=== PATIENT | female | born 1945 | race Caucasian/White ===

== ENCOUNTER → 2017-04-23 | Outpatient (CLI) | payer MEDICARE, OTHER | LOC: MC.RAD 08:14 | DX: Z12.31 Encounter for screening mammogram for malignant neoplasm of breast (principal) ==

== ENCOUNTER 2017-05-30 12:28 | Emergency (ER) | payer MEDICARE, OTHER ==
[~2017-05-30] VITALS: Ht 154.9 cm; Wt 97.7 kg
[2017-05-30 12:30] VITALS: TEMP 97.1
[2017-05-30 12:54] LABS: BASO # 0.1 (0.0-0.2); BASO % 0.6 % (0.0-2.0); EOS % 0.3 % (0-4.0); GRAN % 74.6 % (42.2-75.2); HEMATOCRIT 45.6 % (37.0-47.0); HEMOGLOBIN 15.3 g/dl (12.5-16.0); LYMPH # 1.5 (1.2-3.4); LYMPH % 19.1 % (20.0-51.0); MEAN CELL VOLUME 89 fl (80.0-100.0); MEAN CORPUSCULAR HEMOGLOBIN 30 pg (27.0-31.0); MEAN CORPUSCULAR HGB CONC 34 g/dl (33.0-37.0); MONO # 0.4 (0.1-0.6); PLATELET COUNT 283 K/mm3 (130-400); RED BLOOD COUNT 5.12 M/mm3 (4.10-5.30); REDCELL DISTRIBUTION WIDTH-CV 13.7 % (11.5-14.5)
[2017-05-30 13:03] LABS: INR 1.1 (0.8-3.0); PROTHROMBIN TIME 13.2 SECONDS (9.7-12.8)
[2017-05-30 13:05] LABS: ALANINE AMINOTRANSFERASE 29 U/L (9-52); ALBUMIN 4.3 gm/dL (3.5-5.0); ALKALINE PHOSPHATASE 68 U/L (50-136); ANION GAP 18 mmol/L (7-16); AST,SGOT 30 U/L (15-37); BILIRUBIN,TOTAL 0.9 mg/dL (0.0-1.0); BLOOD UREA NITROGEN 14 mg/dL (7-17); CALCIUM 9.6 mg/dL (8.4-10.2); CARBON DIOXIDE 22 mmol/L (22-30); CHLORIDE 97 mmol/L (98-107); CREATININE, serum 1.06 mg/dL (0.52-1.25); GLUCOSE 119 mg/dL (74-106); SODIUM 137 mmol/L (137-145); TOTAL PROTEIN 7.1 gm/dL (6.4-8.2)
[2017-05-30 13:06] LABS: PARTIAL THROMBOPLASTIN TIME 23.7 SECONDS (26.0-37.0)
[2017-05-30 13:15] LABS: POTASSIUM 2.7 mmol/L (3.4-5.0)
[2017-05-30 13:19] LABS: TROPONIN-I < 0.012 ng/mL (0.000-0.034)
[2017-05-30] MEDS ORDERED: HCTZ 25MG TAB25 MG PO (13:25)
[2017-05-30] MEDS ORDERED: CYMBALTA 30MG30 MG PO (13:25)
[2017-05-30] MEDS ORDERED: ELIQUIS 5MG PO (14:31)
[2017-05-30 14:40] VITALS: BP 126/70; PULSE 94
== END 2017-05-30 14:41 | disposition home or self-care (01) ==
LOC: COL.ER 12:28
PROVIDERS: Family Medicine
DX: I48.91 Unspecified atrial fibrillation (principal); R55 Syncope and collapse; I10 Essential (primary) hypertension
CPT/HCPCS: J7030

== ENCOUNTER → 2017-06-06 | Outpatient (CLI) | payer MEDICARE, OTHER ==
[~2017-06-06] MED LIST: CYMBALTA 30MG30 MG PO; ELIQUIS 5MG PO; HCTZ 25MG TAB25 MG PO
== END ==
LOC: COL.VAS 09:22
DX: I08.8 Other rheumatic multiple valve diseases (principal); I48.0 Paroxysmal atrial fibrillation

== ENCOUNTER 2017-07-25 09:13 | Day surgery (SDC) | payer MEDICARE, OTHER ==
[~2017-07-25] VITALS: Ht 154.9 cm; Wt 88.0 kg
[2017-07-25 09:00] VITALS: BP 126/80; PULSE 92; TEMP 98
[2017-07-25 10:05] LABS: INR 2.3 (0.8-3.0); PROTHROMBIN TIME 26.8 SECONDS (9.7-12.8)
[2017-07-25 10:11] LABS: POTASSIUM 3.1 mmol/L (3.4-5.0)
[2017-07-25] MEDS ORDERED: COUMADIN 6MG6 MG/TAB PO (10:12)
[2017-07-25] MEDS ORDERED: ZESTRIL 20MG TA20 MG PO (10:26)
[2017-07-25 10:44] LABS: THYROID STIMULATING HORMONE 0.8 uIU/mL (0.465-4.680)
[2017-07-25 11:32] VITALS: BP 127/82; PULSE 111; TEMP 98
[2017-07-25] MEDS ORDERED: MULTAQ400 MG PO (11:36)
[2017-07-25 11:47] VITALS: BP 126/67; PULSE 76; TEMP 98
[2017-07-25 12:17] VITALS: BP 128/75; PULSE 69; TEMP 98
[2017-07-25 12:47] VITALS: BP 127/71; PULSE 73; TEMP 98
[2017-07-25 13:17] VITALS: BP 127/66; PULSE 76; TEMP 98.1
== END 2017-07-25 13:30 | disposition home or self-care (01) ==
LOC: COL.CAR 09:13
PROVIDERS: Internal Medicine Cardiovascular Disease
DX: I48.0 Paroxysmal atrial fibrillation (principal); I10 Essential (primary) hypertension; R55 Syncope and collapse; E78.5 Hyperlipidemia, unspecified; Z79.01 Long term (current) use of anticoagulants; Z82.3 Family history of stroke; Z82.5 Family history of asthma and other chronic lower respiratory diseases
CPT/HCPCS: J7030

== ENCOUNTER 2017-08-06 12:41 | Inpatient (IN) | payer MEDICARE, OTHER ==
[~2017-08-06] VITALS: Ht 155 cm; Wt 84.5 kg
[2017-08-06] VITALS (9 sets, daily range): BP systolic 102–134; BP diastolic 50–75; PULSE 63–89; TEMP 97.7–97.8
[~2017-08-06 12:41] MED LIST changes: +COUMADIN 6MG6 MG/TAB PO; +MULTAQ400 MG PO; +ZESTRIL 20MG TA20 MG PO
[2017-08-06 13:33] LABS: HEMATOCRIT 41.6 % (37.0-47.0); HEMOGLOBIN 14.1 g/dl (12.5-16.0); MEAN CELL VOLUME 89 fl (80.0-100.0); MEAN CORPUSCULAR HEMOGLOBIN 30 pg (27.0-31.0); MEAN CORPUSCULAR HGB CONC 34 g/dl (33.0-37.0); PLATELET COUNT 235 K/mm3 (130-400); RED BLOOD COUNT 4.68 M/mm3 (4.10-5.30); REDCELL DISTRIBUTION WIDTH-CV 14.8 % (11.5-14.5)
[2017-08-06] MEDS ORDERED: KLOR-CON M2020 MEQ PO (13:33)
[2017-08-06 13:36] LABS: INR 2.5 (0.8-3.0); PROTHROMBIN TIME 29.3 SECONDS (9.7-12.8)
[2017-08-06 13:40] LABS: ALBUMIN 3.6 gm/dL (3.5-5.0); BILIRUBIN,TOTAL 0.5 mg/dL (0.0-1.0); CALCIUM 8.9 mg/dL (8.4-10.2); CREATININE, serum 0.68 mg/dL (0.52-1.25); MAGNESIUM 1.8 mg/dL (1.6-2.3); POTASSIUM 3.5 mmol/L (3.4-5.0); TOTAL PROTEIN 6.6 gm/dL (6.4-8.2)
[2017-08-06 14:11] LABS: THYROID STIMULATING HORMONE 1.24 uIU/mL (0.465-4.680)
[2017-08-07 04:32] VITALS: BP 115/65; PULSE 58; TEMP 97.6
[2017-08-07 06:52] LABS: INR 2.5 (0.8-3.0)
[2017-08-07 06:58] LABS: CALCIUM 8.6 mg/dL (8.4-10.2); CREATININE, serum 0.67 mg/dL (0.52-1.25); POTASSIUM 3.8 mmol/L (3.4-5.0)
[2017-08-07 08:05] VITALS: BP 131/76; PULSE 63; TEMP 98.1
[2017-08-07 11:26] VITALS: BP 133/61; PULSE 67; TEMP 97.6
[2017-08-07 15:23] VITALS: BP 122/43; PULSE 57; TEMP 97.6
[2017-08-07 19:49] VITALS: BP 121/64; PULSE 67; TEMP 970
[2017-08-07 23:55] VITALS: BP 109/46; PULSE 52; TEMP 97
[2017-08-08 03:47] VITALS: BP 115/60; PULSE 61; TEMP 97.9
[2017-08-08 07:00] LABS: INR 2.8 (0.8-3.0); PROTHROMBIN TIME 32.7 SECONDS (9.7-12.8)
[2017-08-08 08:09] VITALS: BP 128/56; PULSE 61; TEMP 97.9
[2017-08-08] MEDS ORDERED: CEPHALEXIN500 M1 PO (10:09)
[2017-08-08] MEDS ORDERED: BETAPACE 80MG80 MG PO (10:10)
== END 2017-08-08 12:15 | disposition home or self-care (01) | DRG 262 ==
LOC: COL.CAR 12:41 → MEDICAL 15:49
PROVIDERS: Internal Medicine Cardiovascular Disease; Nurse Practitioner
PROC: 0JH632Z Insertion of Monitoring Device into Chest Subcutaneous Tissue and Fascia, Percutaneous Approach (ICD-10-PCS; principal; 2017-08-06)
PROC: 5A2204Z Restoration of Cardiac Rhythm, Single (ICD-10-PCS; 2017-08-06)
DX: I48.0 Paroxysmal atrial fibrillation (principal); E87.6 Hypokalemia; I10 Essential (primary) hypertension; Z79.01 Long term (current) use of anticoagulants
CPT/HCPCS: C1764; J2250; J3010

== ENCOUNTER → 2018-05-08 | Outpatient (CLI) | payer MEDICARE, OTHER ==
[~2018-05-08] MED LIST changes: +BETAPACE 80MG80 MG PO; +CEPHALEXIN500 M1 PO; +KLOR-CON M2020 MEQ PO
== END ==
LOC: MC.RAD 07:47
DX: Z12.31 Encounter for screening mammogram for malignant neoplasm of breast (principal)

== ENCOUNTER → 2019-06-29 | Outpatient (CLI) | payer MEDICARE, OTHER | LOC: MC.RAD 09:13 | DX: Z12.31 Encounter for screening mammogram for malignant neoplasm of breast (principal) ==

== ENCOUNTER → 2020-07-05 | Outpatient (CLI) | payer MEDICARE, OTHER | LOC: MC.RAD 09:31 | DX: Z12.31 Encounter for screening mammogram for malignant neoplasm of breast (principal) ==

== ENCOUNTER → 2021-07-30 | Outpatient (CLI) | payer MEDICARE, OTHER | LOC: MC.RAD 08:15 | DX: Z12.31 Encounter for screening mammogram for malignant neoplasm of breast (principal) ==

== ENCOUNTER 2021-12-05 09:22 | Day surgery (SDC) | payer MEDICARE, OTHER ==
[~2021-12-05] VITALS: Ht 154.9 cm; Wt 99.0 kg
[2021-12-05] VITALS (7 sets, daily range): BP systolic 130–149; BP diastolic 68–92; PULSE 66–80; TEMP 98.1
[~2021-12-05 09:22] MED LIST changes: -COUMADIN 6MG6 MG/TAB PO; +COUMADIN4 MG PO
[2021-12-05 10:49] LABS: BASO # 0.1 K/mm3 (0.0-0.2); EOS # 0.1 K/mm3 (0.0-0.7); EOS % 0.8 % (0.0-4.0); GRAN # 3.9 K/mm3 (1.4-6.5); GRAN % 64.8 % (42.2-75.2); HEMATOCRIT 41.1 % (37.0-47.0); HEMOGLOBIN 13.6 g/dl (12.5-16.0); LYMPH # 1.7 K/mm3 (1.2-3.4); LYMPH % 27.8 % (20.0-51.0); MEAN CELL VOLUME 87 fl (80.0-100.0); MEAN CORPUSCULAR HEMOGLOBIN 29 pg (27-31); MEAN CORPUSCULAR HGB CONC 33 g/dl (33.0-37.0); MEAN PLATELET VOLUME 9.8 fl (7.4-10.4); MONO # 0.3 K/mm3 (0.1-0.6); MONO % 5.4 % (1.7-9.3); PLATELET COUNT 284 K/mm3 (130-400); REDCELL DISTRIBUTION WIDTH-CV 14.6 % (11.5-14.5)
[2021-12-05 10:58] LABS: INR 2.7 (0.8-3.0); PROTHROMBIN TIME 31.6 SECONDS (9.7-12.8)
[2021-12-05 11:00] LABS: PARTIAL THROMBOPLASTIN TIME 44.2 SECONDS (26.0-37.0)
[2021-12-05 11:02] LABS: CALCIUM 8.3 mg/dL (8.4-10.2); CREATININE, serum 0.73 mg/dL (0.57-1.11); MAGNESIUM 2.1 mg/dL (1.6-2.6); POTASSIUM 4.1 mmol/L (3.5-4.5)
[2021-12-05] MEDS ORDERED: FOSAMAX 70MG TA70 MG PO (11:02)
[2021-12-05 11:23] LABS: THYROID STIMULATING HORMONE 0.683 uIU/mL (0.350-4.940)
--- NOTE | 2021-12-05 12:17 | NUR ---
See merge for all medication, assessment, intervention, and vital sign times. [employer] here for sedation.
[2021-12-05] MEDS ORDERED: BETAPACE 80MG80 MG PO (13:22)
[2021-12-05] MEDS ORDERED: CEPHALEXIN500 M1 PO (13:23)
--- NOTE | 2021-12-05 14:47 | NUR ---
Discharge instructions given to pt.Pt verbalizes understanding.Pt escortedo ut via wheelchair by this nurse.
== END 2021-12-05 15:19 ==
LOC: COL.CAR 09:22
PROVIDERS: Internal Medicine Cardiovascular Disease
DX: I48.91 Unspecified atrial fibrillation (principal); I08.0 Rheumatic disorders of both mitral and aortic valves; E66.01 Morbid (severe) obesity due to excess calories
CPT/HCPCS: C1764; J0282; J0690; J2704

== ENCOUNTER 2022-03-01 15:28 | Emergency (ER) | payer MEDICARE, OTHER ==
[~2022-03-01] VITALS: Ht 157.5 cm; Wt 100.0 kg
[~2022-03-01 15:28] MED LIST changes: +FOSAMAX 70MG TA70 MG PO
[2022-03-01 15:29] VITALS: TEMP 97.7
[2022-03-01 16:48] LABS: BASO # 0.1 K/mm3 (0.0-0.2); BASO % 0.5 % (0.0-2.0); EOS # 0.1 K/mm3 (0.0-0.7); EOS % 0.6 % (0.0-4.0); GRAN # 8.1 K/mm3 (1.4-6.5); GRAN % 78.8 % (42.2-75.2); HEMATOCRIT 40.5 % (37.0-47.0); HEMOGLOBIN 13.7 g/dl (12.5-16.0); LYMPH # 1.6 K/mm3 (1.2-3.4); LYMPH % 15.1 % (20.0-51.0); MEAN CELL VOLUME 88 fl (80.0-100.0); MEAN CORPUSCULAR HEMOGLOBIN 30 pg (27-31); MEAN CORPUSCULAR HGB CONC 34 g/dl (33.0-37.0); MEAN PLATELET VOLUME 9.9 fl (7.4-10.4); MONO # 0.5 K/mm3 (0.1-0.6); MONO % 4.4 % (1.7-9.3); PLATELET COUNT 234 K/mm3 (130-400); RED BLOOD COUNT 4.61 M/mm3 (4.10-5.30); REDCELL DISTRIBUTION WIDTH-CV 13.9 % (11.5-14.5)
[2022-03-01 16:57] LABS: PROTHROMBIN TIME 34.6 SECONDS (9.7-12.8)
[2022-03-01 17:11] LABS: ALBUMIN 3.5 gm/dL (3.4-4.8); BILIRUBIN,TOTAL 0.6 mg/dL (0.2-1.2); CALCIUM 8.6 mg/dL (8.4-10.2); CREATININE, serum 0.76 mg/dL (0.57-1.11); POTASSIUM 3.6 mmol/L (3.5-4.5); TOTAL PROTEIN 6.6 gm/dL (6.2-8.1)
[2022-03-01] MEDS ORDERED: ROXICODONE 55 MG/TAB PO (18:29)
[2022-03-01 18:36] VITALS: BP 160/89; PULSE 70
== END 2022-03-01 18:51 | disposition home or self-care (01) ==
LOC: COL.ER 15:28
PROVIDERS: Emergency Medicine
DX: S42.492A Other displaced fracture of lower end of left humerus, initial encounter for closed fracture (principal); S00.83XA Contusion of other part of head, initial encounter; I48.91 Unspecified atrial fibrillation; R79.1 Abnormal coagulation profile; Z88.5 Allergy status to narcotic agent; Z79.01 Long term (current) use of anticoagulants; W10.9XXA Fall (on) (from) unspecified stairs and steps, initial encounter; Y93.01 Activity, walking, marching and hiking; Y92.009 Unspecified place in unspecified non-institutional (private) residence as the place of occurrence of the external cause
CPT/HCPCS: J2270

== ENCOUNTER 2024-01-17 22:01 | Emergency (ER) | payer MEDICARE, OTHER ==
[~2024-01-17] VITALS: Ht 154.9 cm; Wt 64.5 kg
[~2024-01-17 22:01] MED LIST changes: +ROXICODONE 55 MG/TAB PO
[2024-01-17 22:03] VITALS: TEMP 97.7
[2024-01-17] MEDS ORDERED: Ketorolac 30 MG/ML VIAL IV ONE (22:45)
[2024-01-17 22:49] LABS: BASO # 0.1 K/mm3 (0.0-0.2); BASO % 0.9 % (0.0-2.0); EOS # 0.1 K/mm3 (0.0-0.7); EOS % 1.5 % (0.0-4.0); GRAN # 3.4 K/mm3 (1.4-6.5); GRAN % 46.2 % (42.2-75.2); HEMATOCRIT 38.1 % (37.0-47.0); LYMPH # 3.3 K/mm3 (1.2-3.4); LYMPH % 44.6 % (20.0-51.0); MEAN CELL VOLUME 90 fl (80.0-100.0); MEAN CORPUSCULAR HEMOGLOBIN 31 pg (27-31); MEAN CORPUSCULAR HGB CONC 34 g/dl (33.0-37.0); MEAN PLATELET VOLUME 9.6 fl (7.4-10.4); MONO # 0.5 K/mm3 (0.1-0.6); MONO % 6.5 % (1.7-9.3); PLATELET COUNT 258 K/mm3 (130-400); RED BLOOD COUNT 4.25 M/mm3 (4.10-5.30); REDCELL DISTRIBUTION WIDTH-CV 13.2 % (11.5-14.5)
[2024-01-17 22:53] LABS: ERYTHROCYTE SEDIMENTATION RATE 10 mm/hr (0-30)
[2024-01-17 23:01] LABS: INR 6.2 (0.8-3.0); PROTHROMBIN TIME 63.6 SECONDS (9.7-12.8)
[2024-01-17 23:06] LABS: ALBUMIN 3.5 g/dL (3.4-4.8); BILIRUBIN,TOTAL 0.4 mg/dL (0.2-1.2); C-REACTIVE PROTEIN 0.3 mg/dL (0.00-0.50); CREATININE, serum 0.7 mg/dL (0.57-1.11); POTASSIUM 3.6 mEq/L (3.5-4.5); TOTAL PROTEIN 6.5 g/dl (6.2-8.1)
[2024-01-17 23:12] LABS: TROPONIN-I 0.011 ng/mL (0.00-0.033)
[2024-01-18] MEDS ORDERED: FENTANYL 12MCG TD (01:52)
[2024-01-18] MEDS ORDERED: fentaNYL 12 MCG 72 HR PATCH TD ONE (02:00)
[2024-01-18 02:25] VITALS: BP 189/88; PULSE 61
== END 2024-01-18 02:25 | disposition home or self-care (01) ==
LOC: COL.ER 22:01
PROVIDERS: Emergency Medicine
DX: M25.512 Pain in left shoulder (principal); T45.515A Adverse effect of anticoagulants, initial encounter; I48.91 Unspecified atrial fibrillation; Z79.01 Long term (current) use of anticoagulants; Z79.899 Other long term (current) drug therapy
CPT/HCPCS: J1885; J2360

== ENCOUNTER → 2024-01-29 | Outpatient (CLI) | payer MEDICARE, OTHER ==
[~2024-01-29] MED LIST changes: +FENTANYL 12MCG TD
== END ==
LOC: COL.RAD 07:25
DX: I51.7 Cardiomegaly (principal); I25.10 Atherosclerotic heart disease of native coronary artery without angina pectoris; J84.10 Pulmonary fibrosis, unspecified; K82.8 Other specified diseases of gallbladder; R91.1 Solitary pulmonary nodule